=== PATIENT | female | born 2000 | race Caucasian/White ===

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

== ENCOUNTER 2020-10-13 20:58 | Emergency (ER) | payer BC, SELFPAY ==
--- NOTE | 2020-10-13 22:10 | EDPHYS ---
Physician Documentation [facility] Name: Chelsey Ellison Age: 19 yrs Sex: Female : 2000 Arrival Date: 10/13/2020 Time: 21:03 Bed 20 Private MD: ED Physician Adam Aguayo HPI: 10/13 22:05 This 19 yrs old Female presents to ER via Ambulatory with complaints of Sore cp Throat. 22:05 The patient presents with sore throat. Onset: The symptoms/episode began/occurred 5 cp day(s) ago. Severity of symptoms: in the emergency department the symptoms are unchanged, despite home interventions. Associated signs and symptoms: Pertinent positives: earache, Pertinent negatives cough, diarrhea, dysphagia, fever, headache, vomiting. The patient has experienced similar episodes in the past, today's symptoms are similar, to when the patient was apparently diagnosed with strep throat. 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 - Social history:: Smoking status: Patient denies any tobacco usage or history of. Patient/guardian denies using alcohol, street drugs, IV drugs. ROS: 22:06 Eyes: Negative for injury, pain, redness, and discharge. cp 22:06 Constitutional: Negative for body aches, chills, fever, poor PO intake. 22:06 ENT: Positive for ear pain, sore throat, Negative for drainage from ear(s), sinus pain, difficulty swallowing, difficulty handling secretions. 22:06 Neck: Negative for pain with movement, pain at rest, stiffness. 22:06 Respiratory: Negative for cough, shortness of breath, wheezing. 22:06 Abdomen/GI: Negative for abdominal pain, nausea, vomiting, and diarrhea. 22:06 Skin: Negative for rash. 22:06 Neuro: Negative for headache. 22:06 All other systems are negative. Exam: 22:07 Head/Face: Normocephalic, atraumatic. cp 22:07 Constitutional: The patient appears in no acute distress, alert, awake, non-toxic, well developed, well nourished. 22:07 Eyes: Periorbital structures: appear normal, Conjunctiva: normal, no exudate, no injection, Sclera: no appreciated abnormality, Lids and lashes: appear normal, bilaterally. 22:07 ENT: External ear(s): are unremarkable, Ear canal(s): are normal, clear, TM's: dullness, bilaterally, Nose: is normal, Mouth: Lips: moist, Oral mucosa: pink and intact, moist, Posterior pharynx: Airway: no evidence of obstruction, patent, Tonsils: bilaterally enlarged, with erythema, with exudate, Uvula: midline, erythema, that is moderate. 22:07 Neck: ROM/movement: is normal, is supple, without pain, no range of motions limitations, no meningismus, Lymph nodes: lymphadenopathy is appreciated, anterior cervical nodes. 22:07 Chest/axilla: Inspection: normal. 22:07 Cardiovascular: Rate: tachycardic. 22:07 Respiratory: the patient does not display signs of respiratory distress, Respirations: normal, no use of accessory muscles, no retractions, labored breathing, is not present. Vital Signs: 21:13 BP 123 / 69; Pulse 100; Resp 18; Temp 98.3; Pulse Ox 99% on R/A; Weight 97.52 kg; mg2 Height 5 ft. 1 in. (154.94 cm); 21:13 Body Mass Index 40.62 (97.52 kg, 154.94 cm) mg2 MDM: 21:46 Patient medically screened. cp 22:09 Differential diagnosis: cuco-crews virus, group A strep tonsillitis, peritonsillar cp abscess pharyngitis, retropharyngeal abcess. Data reviewed: vital signs, nurses notes, lab test result(s). Counseling: I had a detailed discussion with the patient and/or guardian regarding: the historical points, exam findings, and any diagnostic results supporting the discharge/admit diagnosis, lab results, to return to the emergency department if symptoms worsen or persist or if there are any questions or concerns that arise at home. 10/13 21:17 Order name: Strep mg2 10/13 21:46 Order name: Throat Culture EDMS Administered Medications: 22:15 Drug: Augmentin 875 mg Route: PO; jb4 22:23 Follow up: Response: Medication administered at discharge. jb4 Disposition: 10/14 03:51 Co-signature as Attending Physician, Adam Aguayo MD. 7 Disposition: 10/13/20 22:10 Discharged to Home. Impression: Acute tonsillitis. - Condition is Stable. - Discharge Instructions: Tonsillitis. - Prescriptions for Augmentin 875- 125 mg Oral Tablet - take 1 tablet by ORAL route every 12 hours for 10 days; 20 tablet. - Medication Reconciliation Form, Thank You Letter, Antibiotic Education, Prescription Opioid Use form. - Work release form (10/13/20 22:34). ll2 - Follow up: Private Physician; When: 1 - 2 days; Reason: Worsening of condition. - Problem is new. - Symptoms have improved. Signatures: Dispatcher [employer] EDMS Ozzy Coronel PA PA cp Bryce Joiner RN RN jb4 Lorne Salinas RN RN [facility] Adam Aguayo MD MD [facility] Marleni Mcclain RN ll2 Corrections: (The following items were deleted from the chart) 10/13 22:24 22:10 10/13/2020 22:10 Discharged to Home. Impression: Acute tonsillitis. Condition is jb4 Stable. Forms are Medication Reconciliation Form, Thank You Letter, Antibiotic Education, Prescription Opioid Use. Follow up: Private Physician; When: 1 - 2 days; Reason: Worsening of condition. Problem is new. Symptoms have improved. cp
--- NOTE | 2020-10-13 22:10 | ER ---
Nurse's Notes [facility] Name: Chelsey Ellison Age: 19 yrs Sex: Female : 2000 Arrival Date: 10/13/2020 Time: 21:03 Bed 20 Private MD: Diagnosis: Acute tonsillitis Presentation: 10/13 21:13 Chief complaint: Patient states: i have sore throat for 5 days and i think it is strep. mg2 i have strep yearly. Coronavirus screen: Client denies travel out of the [place] in the last 14 days. Ebola Screen: No symptoms or risks identified at this time. Initial Sepsis Screen: Does the patient meet any 2 criteria? No. Patient's initial sepsis screen is negative. Does the patient have a suspected source of infection? No. Patient's initial sepsis screen is negative. Risk Assessment: Do you want to hurt yourself or someone else? Patient reports no desire to harm self or others. Onset of symptoms was October 09, 2020. 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 - Social history:: Smoking status: Patient denies any tobacco usage or history of. Patient/guardian denies using alcohol, street drugs, IV drugs. Screenin:48 Abuse screen: Denies threats or abuse. Nutritional screening: No deficits noted. jb4 Tuberculosis screening: No symptoms or risk factors identified. Fall Risk None identified. Assessment: 21:47 General: Appears in no apparent distress. comfortable, Behavior is calm, cooperative, jb4 appropriate for age. Pain: Complains of pain in throat Pain does not radiate. Pain currently is 5 out of 10 on a pain scale. Neuro: Level of Consciousness is awake, alert, obeys commands, Oriented to person, place, time, situation. Cardiovascular: Patient's skin is warm and dry. Respiratory: Airway is patent Respiratory effort is even, unlabored, Respiratory pattern is regular, symmetrical, Denies shortness of breath labored breathing. GI: No signs and/or symptoms were reported involving the gastrointestinal system. : No signs and/or symptoms were reported regarding the genitourinary system. EENT: Throat is clear is reddened has enlarged tonsils bilaterally with gag reflex present. Derm: Skin is intact, Skin is pink, warm \T\ dry. Musculoskeletal: Circulation, motion, and sensation intact. Range of motion: intact in all extremities. Vital Signs: 21:13 BP 123 / 69; Pulse 100; Resp 18; Temp 98.3; Pulse Ox 99% on R/A; Weight 97.52 kg; mg2 Height 5 ft. 1 in. (154.94 cm); 21:13 Body Mass Index 40.62 (97.52 kg, 154.94 cm) mg2 ED Course: 21:03 Patient arrived in ED. cl3 21:15 Triage completed. mg2 21:15 Arm band placed on. mg2 21:44 Ozzy Coronel PA is PHCP. cp 21:44 Adam Aguayo MD is Attending Physician. cp 21:47 Bryce Joiner, RN is Primary Nurse. jb4 21:48 Patient has correct armband on for positive identification. Bed in low position. Call jb4 light in reach. Side rails up X 1. Pulse ox on. NIBP on. 22:23 No provider procedures requiring assistance completed. Patient did not have IV access jb4 during this emergency room visit. Administered Medications: 22:15 Drug: Augmentin 875 mg Route: PO; jb4 22:23 Follow up: Response: Medication administered at discharge. jb4 Outcome: 22:10 Discharge ordered by . cp 22:23 Discharged to home ambulatory. jb4 22:23 Condition: stable 22:23 Discharge instructions given to patient, Instructed on discharge instructions, follow up and referral plans. medication usage, Demonstrated understanding of instructions, follow-up care, medications, Prescriptions given X 1. 22:24 Patient left the ED. jb4 Signatures: Ozzy Coronel PA PA Bryce Rincon RN RN jb4 Lorne Salinas RN RN mg2 Mana Helm cl3
[2020-10-13] MEDS ORDERED: AMOX/K CLAV 875 MG TAB ONE (22:32)
[2020-10-14 02:30] VITALS: BP 123/69; TEMP 98.3; O2SAT 99
== END 2020-10-13 22:24 | disposition home or self-care (01) ==
LOC: ER 20:58
DX: J03.90 Acute tonsillitis, unspecified (principal)
CPT/HCPCS: 87070; 87081; 99283